=== PATIENT | male | born 1940 | race African-American/Black ===

== ENCOUNTER 2019-08-29 15:30 | Inpatient (IN) | payer MEDICARE, MEDICAID ==
[~2019-08-29] VITALS: Ht 172.7 cm; Wt 74.4 kg
[2019-08-29] VITALS (17 sets, daily range): BP systolic 65–99; BP diastolic 48–68
[2019-08-29] MEDS ORDERED: SODIUM CHLORIDE 0.9% 1000ML BAG (SEPSIS BOLUS) IV ONE (16:00)
[2019-08-29 16:18] LABS: BASOPHILS % 0.3 % (0.0-2.0); EOSINOPHILS % 0.4 % (0.0-5.0); HEMATOCRIT. 33.8 % (42.0-52.0); HEMOGLOBIN. 11.3 g/dL (14.0-18.0); LYMPHOCYTES % 10.4 % (20.0-50.0); MEAN CORPUSCULAR HEMOGLOBIN 32.7 pg (28.0-32.0); MEAN CORPUSCULAR VOLUME 98.1 fL (80.0-94.0); MEAN PLATELET VOLUME 7.8 fl (7.4-10.4); MONOCYTES % 8.2 % (2.0-8.0); NEUTROPHILS % 80.7 % (40.0-76.0); PLATELET 338 x1000/uL (130-400); RED BLOOD CELL COUNT 3.44 mill/uL (4.7-6.1); RED CELL DISTRIBUTION WIDTH 13.6 % (11.6-14.6)
[2019-08-29 16:22] LABS: PROTHROMBIN TIME 10.3 sec (9.6-11.0)
[2019-08-29 16:23] LABS: CHLORIDE 103 mEq/L (98-107)
[2019-08-29] MEDS ORDERED: SODIUM CHLORIDE 0.45% 1,000 ML IV SCH (20:02)
[2019-08-29] MEDS ORDERED: MORPHINE SULFATE 2 MG/ML CPJ (NOT FOR IM USE) IV PRN (20:15)
[2019-08-29] MEDS ORDERED: GUAIFENESIN 200MG/10ML SUGAR FREE UDC PO PRN (20:15)
[2019-08-29] MEDS ORDERED: ACETAMINOPHEN 325MG TABLET PO PRN (20:15)
[2019-08-29] MEDS ORDERED: DOCUSATE SODIUM 100MG CAPSULE PO PRN (20:15)
[2019-08-29] MEDS ORDERED: CLONIDINE 0.1MG TABLET PO PRN (20:15)
[2019-08-29] MEDS ORDERED: MAGNESIUM/ALUMINUM HYDROXIDE/SIMETHICONE 30ML UDC PO PRN (20:15)
[2019-08-29] MEDS ORDERED: HYDROCODONE/ACETAMINOPHEN 10/325MG TABLET PO PRN (20:15)
[2019-08-29] MEDS ORDERED: IPRATROPIUM/ALBUTEROL 0.5-3(2.5)MG/3ML NEB HHN PRN (20:15)
[2019-08-29] MEDS ORDERED: DOPAMINE 800MG PREMIX (DOUBLE) 250 ML IV PRN (20:57)
[2019-08-29] MEDS ORDERED: LEVOFLOXACIN 500MG PREMIX 100 ML IV SCH ×2 (21:00→22:00)
[2019-08-29] MEDS: DEXT 5%/0.9% NACL 1,000 ML IV SCH (21:07)
[2019-08-29] MEDS: PANTOPRAZOLE 80 MG in SODIUM CHLORIDE 0.9% 100 ML IV SCH (21:59)
[2019-08-29] MEDS: SODIUM CHLORIDE 0.9% INJ 3ML FLUSH IVF SCH (22:09)
[2019-08-29] MEDS: METRONIDAZOLE 500 MG PREMIX 100 ML IV SCH (22:09)
[2019-08-30] VITALS (81 sets, daily range): BP systolic 73–127; BP diastolic 43–83
[2019-08-30] MEDS: NOREPINEPHRINE 8 MG in DEXT 5% WATER 242 ML IV PRN (00:50)
[2019-08-30] MEDS: ONDANSETRON HCL 4MG/2ML INJ IV PRN (01:30)
[2019-08-30 02:57] LABS: BASOPHILS % 0.1 % (0.0-2.0); CHLORIDE 113 mEq/L (98-107); HEMATOCRIT. 28.1 % (42.0-52.0); HEMOGLOBIN. 9.4 g/dL (14.0-18.0); LYMPHOCYTES % 8.7 % (20.0-50.0); MEAN CORPUSCULAR HEMOGLOBIN 31.5 pg (28.0-32.0); MEAN CORPUSCULAR VOLUME 94.4 fL (80.0-94.0); MEAN PLATELET VOLUME 7.9 fl (7.4-10.4); MONOCYTES % 9.9 % (2.0-8.0); NEUTROPHILS % 81.3 % (40.0-76.0); PLATELET 192 x1000/uL (130-400); RED BLOOD CELL COUNT 2.98 mill/uL (4.7-6.1); RED CELL DISTRIBUTION WIDTH 14.3 % (11.6-14.6)
[2019-08-30 03:05] LABS: LDL CHOLESTEROL 53 mg/dL (5-100)
[2019-08-30 03:06] LABS: HDL CHOLESTEROL 31 mg/dL (40-59)
[2019-08-30 03:07] LABS: CREATINE KINASE 124 IU/L (39-308); CREATINE KINASE MB FRACTION 1.3 ng/mL (0.5-3.6); T4 FREE 1.01 ng/dL (0.76-1.46)
[2019-08-30] MEDS ORDERED: ASCO100T12 MT (05:00)
[2019-08-30] MEDS ORDERED: ASPI-1393 PO (05:00)
[2019-08-30] MEDS ORDERED: FERR236T3 MT (05:00)
[2019-08-30] MEDS ORDERED: LISI-648 PO (05:00)
[2019-08-30] MEDS: SODIUM CHLORIDE 0.9% INJ 3ML FLUSH IVF SCH ×3 (06:05→21:28)
[2019-08-30] MEDS: METRONIDAZOLE 500 MG PREMIX 100 ML IV SCH ×3 (06:05→21:28)
[2019-08-30] MEDS: DEXT 5%/0.9% NACL 1,000 ML IV SCH ×2 (06:53→17:59)
[2019-08-30] MEDS: PANTOPRAZOLE 80 MG in SODIUM CHLORIDE 0.9% 100 ML IV SCH ×2 (06:54→17:48)
[2019-08-30] MEDS ORDERED: PNEUMOCOCCAL 23-VAL P-SAC VAC 0.5 ML IM ONE (08:00)
[2019-08-30] MEDS ORDERED: DIATR MEGLU/DIATRIZOATE SOLN 30ML PO SCH (10:00)
[2019-08-30 11:01] LABS: HEMATOCRIT 27.3 % (42.0-52.0); HEMOGLOBIN 9.4 g/dL (14.0-18.0)
[2019-08-30 12:16] LABS: T4 FREE 1.03 ng/dL (0.76-1.46)
[2019-08-30 14:49] LABS: CREATINE KINASE 105 IU/L (39-308)
[2019-08-30 14:50] LABS: CREATINE KINASE MB FRACTION 1.2 ng/mL (0.5-3.6)
[2019-08-30 17:00] LABS: HEMOGLOBIN 7.8 g/dL (14.0-18.0)
[2019-08-30] MEDS: LORAZEPAM 2MG/ML CPJ IV PRN (20:29)
[2019-08-30] MEDS ORDERED: LEVOFLOXACIN 500MG PREMIX 100 ML IV SCH (23:00)
[2019-08-30 23:43] LABS: HEMOGLOBIN 7.6 g/dL (14.0-18.0)
[2019-08-30 23:59] LABS: CREATINE KINASE 81 IU/L (39-308); CREATINE KINASE MB FRACTION 1.2 ng/mL (0.5-3.6)
[2019-08-31] VITALS (107 sets, daily range): BP systolic 68–164; BP diastolic 42–94
[2019-08-31 00:58] LABS: HEMATOCRIT 23.2 % (42.0-52.0); HEMOGLOBIN 7.8 g/dL (14.0-18.0)
[2019-08-31] MEDS: LORAZEPAM 2MG/ML CPJ IV PRN (01:44)
[2019-08-31] MEDS: DEXT 5%/0.9% NACL 1,000 ML IV SCH ×3 (02:59→22:46)
[2019-08-31] MEDS: PANTOPRAZOLE 80 MG in SODIUM CHLORIDE 0.9% 100 ML IV SCH ×2 (04:03→16:17)
[2019-08-31] MEDS: NOREPINEPHRINE 8 MG in DEXT 5% WATER 242 ML IV PRN (05:36)
[2019-08-31] MEDS: METRONIDAZOLE 500 MG PREMIX 100 ML IV SCH ×3 (05:39→21:30)
[2019-08-31] MEDS: SODIUM CHLORIDE 0.9% INJ 3ML FLUSH IVF SCH ×3 (05:39→21:30)
[2019-08-31 06:16] LABS: BASOPHILS % 0.1 % (0.0-2.0); EOSINOPHILS % 0.2 % (0.0-5.0); LYMPHOCYTES % 10.3 % (20.0-50.0); MEAN CORPUSCULAR HEMOGLOBIN 31.9 pg (28.0-32.0); MEAN CORPUSCULAR VOLUME 95.8 fL (80.0-94.0); MEAN PLATELET VOLUME 7.9 fl (7.4-10.4); MONOCYTES % 6.4 % (2.0-8.0); PLATELET 147 x1000/uL (130-400); RED BLOOD CELL COUNT 1.75 mill/uL (4.7-6.1); RED CELL DISTRIBUTION WIDTH 14.9 % (11.6-14.6)
[2019-08-31 06:30] LABS: HEMATOCRIT. 16.8 % (42.0-52.0); HEMOGLOBIN. 5.6 g/dL (14.0-18.0)
[2019-08-31 07:00] LABS: CREATINE KINASE MB FRACTION 1.2 ng/mL (0.5-3.6)
[2019-08-31] MEDS ORDERED: LIDOCAINE HCL 1% 20ML VIAL (Pyxis) INJ ONE ×2 (08:00→14:17)
[2019-08-31 14:17] LABS: HEMATOCRIT 22.1 % (42.0-52.0); HEMOGLOBIN 7.7 g/dL (14.0-18.0)
[2019-08-31] MEDS ORDERED: IOHEXOL-300 100 ML BOTTLE ONE (14:17)
[2019-08-31] MEDS ORDERED: SODIUM BICARBONATE 4% (2.4MEQ) 5ML VIAL IV ONE (14:17)
[2019-08-31 18:09] LABS: HEMATOCRIT 21.8 % (42.0-52.0); HEMOGLOBIN 7.5 g/dL (14.0-18.0)
[2019-08-31] MEDS ORDERED: SORBITOL 70% SOLN 30ML PO NR (20:00)
[2019-08-31] MEDS: LEVOFLOXACIN 500MG PREMIX 100 ML IV SCH (20:29)
[2019-09-01] VITALS (82 sets, daily range): BP systolic 101–179; BP diastolic 53–131
[2019-09-01] MEDS ORDERED: SORBITOL 70% SOLN 30ML PO NR
[2019-09-01 00:59] LABS: HEMATOCRIT 20.3 % (42.0-52.0)
[2019-09-01] MEDS: PANTOPRAZOLE 80 MG in SODIUM CHLORIDE 0.9% 100 ML IV SCH ×2 (01:20→12:12)
[2019-09-01] MEDS: ONDANSETRON HCL 4MG/2ML INJ IV PRN (01:56)
[2019-09-01] MEDS: SODIUM CHLORIDE 0.9% INJ 3ML FLUSH IVF SCH ×3 (06:05→22:00)
[2019-09-01] MEDS: METRONIDAZOLE 500 MG PREMIX 100 ML IV SCH ×3 (06:06→23:38)
[2019-09-01 06:13] LABS: BASOPHILS % 0.2 % (0.0-2.0); EOSINOPHILS % 2.3 % (0.0-5.0); HEMATOCRIT. 23.9 % (42.0-52.0); HEMOGLOBIN. 8.3 g/dL (14.0-18.0); LYMPHOCYTES % 14.9 % (20.0-50.0); MEAN CORPUSCULAR HEMOGLOBIN 31.4 pg (28.0-32.0); MEAN CORPUSCULAR VOLUME 90.7 fL (80.0-94.0); MEAN PLATELET VOLUME 8.2 fl (7.4-10.4); MONOCYTES % 8.1 % (2.0-8.0); NEUTROPHILS % 74.5 % (40.0-76.0); PLATELET 114 x1000/uL (130-400); RED BLOOD CELL COUNT 2.64 mill/uL (4.7-6.1); RED CELL DISTRIBUTION WIDTH 15.3 % (11.6-14.6)
[2019-09-01 06:29] LABS: CHLORIDE 122 mEq/L (98-107)
[2019-09-01] MEDS: DEXT 5%/0.9% NACL 1,000 ML IV SCH (08:14)
[2019-09-01] MEDS: DEXT 5%/0.45% NACL 1000ML 1,000 ML IV SCH ×2 (12:12→21:54)
[2019-09-01 12:28] LABS: HEMATOCRIT 23.3 % (42.0-52.0); HEMOGLOBIN 8.1 g/dL (14.0-18.0)
[2019-09-01] MEDS ORDERED: BACTERIOSTATIC SODIUM CHLORIDE 0.9% 30ML VIAL IJ ONE (13:03)
[2019-09-01] MEDS ORDERED: MIDAZOLAM HCL 5 MG/5 ML VIAL ONE ×2 (15:20→15:21)
[2019-09-01] MEDS ORDERED: FENTANYL CITRATE/PF 50MCG/ML 2ML VIAL ONE (15:21)
[2019-09-01] MEDS ORDERED: MIDAZOLAM HCL 5 MG/5 ML VIAL IV PRN (15:42)
[2019-09-01] MEDS ORDERED: FENTANYL CITRATE/PF 50MCG/ML 2ML VIAL IV PRN (15:43)
[2019-09-01 20:05] LABS: HEMATOCRIT 21.8 % (42.0-52.0); HEMOGLOBIN 7.5 g/dL (14.0-18.0)
[2019-09-01] MEDS: LEVOFLOXACIN 500MG PREMIX 100 ML IV SCH (21:54)
[2019-09-02] VITALS (17 sets, daily range): BP systolic 104–145; BP diastolic 53–84
[2019-09-02 00:59] LABS: HEMATOCRIT 22.4 % (42.0-52.0); HEMOGLOBIN 7.7 g/dL (14.0-18.0)
[2019-09-02] MEDS: SODIUM CHLORIDE 0.9% INJ 3ML FLUSH IVF SCH ×3 (06:18→21:54)
[2019-09-02] MEDS: METRONIDAZOLE 500 MG PREMIX 100 ML IV SCH ×3 (06:18→21:54)
[2019-09-02 07:34] LABS: BASOPHILS % 0.3 % (0.0-2.0); EOSINOPHILS % 5.6 % (0.0-5.0); HEMATOCRIT. 21.8 % (42.0-52.0); HEMOGLOBIN. 7.6 g/dL (14.0-18.0); LYMPHOCYTES % 19.4 % (20.0-50.0); MEAN CORPUSCULAR HEMOGLOBIN 31.3 pg (28.0-32.0); MEAN CORPUSCULAR VOLUME 90.1 fL (80.0-94.0); MEAN PLATELET VOLUME 7.8 fl (7.4-10.4); MONOCYTES % 9.2 % (2.0-8.0); NEUTROPHILS % 65.5 % (40.0-76.0); PLATELET 142 x1000/uL (130-400); RED BLOOD CELL COUNT 2.42 mill/uL (4.7-6.1); RED CELL DISTRIBUTION WIDTH 14.6 % (11.6-14.6)
[2019-09-02 08:15] LABS: CHLORIDE 111 mEq/L (98-107)
[2019-09-02] MEDS ORDERED: POTASSIUM CHLORIDE 20MEQ TABLET SR PO NR (09:37)
[2019-09-02] MEDS: LORAZEPAM 2MG/ML CPJ IV PRN (22:06)
[2019-09-02] MEDS: LEVOFLOXACIN 500MG PREMIX 100 ML IV SCH (23:15)
[2019-09-03] VITALS (25 sets, daily range): BP systolic 108–158; BP diastolic 67–92
[2019-09-03] MEDS: SODIUM CHLORIDE 0.9% INJ 3ML FLUSH IVF SCH ×3 (05:15→21:39)
[2019-09-03] MEDS: METRONIDAZOLE 500 MG PREMIX 100 ML IV SCH ×3 (05:15→21:38)
[2019-09-03 13:04] LABS: BASOPHILS % 0.3 % (0.0-2.0); EOSINOPHILS % 4.9 % (0.0-5.0); HEMOGLOBIN. 11.9 g/dL (14.0-18.0); LYMPHOCYTES % 21.6 % (20.0-50.0); MEAN CORPUSCULAR HEMOGLOBIN 31.7 pg (28.0-32.0); MEAN CORPUSCULAR VOLUME 90.5 fL (80.0-94.0); MEAN PLATELET VOLUME 7.5 fl (7.4-10.4); MONOCYTES % 11.3 % (2.0-8.0); NEUTROPHILS % 61.9 % (40.0-76.0); PLATELET 179 x1000/uL (130-400); RED BLOOD CELL COUNT 3.76 mill/uL (4.7-6.1); RED CELL DISTRIBUTION WIDTH 14.5 % (11.6-14.6)
[2019-09-03 13:08] LABS: CHLORIDE 108 mEq/L (98-107)
[2019-09-03 13:13] LABS: PROTHROMBIN TIME 10.8 sec (9.6-11.0)
[2019-09-03] MEDS: LEVOFLOXACIN 500MG PREMIX 100 ML IV SCH (19:51)
[2019-09-04] VITALS (12 sets, daily range): BP systolic 117–152; BP diastolic 50–97
[2019-09-04] MEDS: METRONIDAZOLE 500 MG PREMIX 100 ML IV SCH ×3 (06:36→22:00)
[2019-09-04] MEDS: SODIUM CHLORIDE 0.9% INJ 3ML FLUSH IVF SCH ×3 (06:36→22:01)
[2019-09-04 08:07] LABS: BASOPHILS % 0.4 % (0.0-2.0); EOSINOPHILS % 4.6 % (0.0-5.0); HEMATOCRIT. 35.5 % (42.0-52.0); HEMOGLOBIN. 12.2 g/dL (14.0-18.0); LYMPHOCYTES % 19.1 % (20.0-50.0); MEAN CORPUSCULAR HEMOGLOBIN 31.1 pg (28.0-32.0); MEAN CORPUSCULAR VOLUME 90.5 fL (80.0-94.0); MEAN PLATELET VOLUME 7.5 fl (7.4-10.4); MONOCYTES % 12.9 % (2.0-8.0); PLATELET 215 x1000/uL (130-400); RED BLOOD CELL COUNT 3.93 mill/uL (4.7-6.1); RED CELL DISTRIBUTION WIDTH 14.4 % (11.6-14.6)
[2019-09-04 09:16] LABS: CHLORIDE 108 mEq/L (98-107)
[2019-09-04] MEDS ORDERED: MAGNESIUM CITRATE 300ML SOLUTION PO NR ×2 (11:30→15:30)
[2019-09-04] MEDS ORDERED: NEOMYCIN 500MG TABLET PO NR ×3 (18:00→23:00)
[2019-09-04] MEDS ORDERED: ERYTHROMYCIN 250MG CAPSULE DR PO NR ×3 (18:00→23:00)
[2019-09-04] MEDS ORDERED: [UNRECOGNIZED DRUG - OTHER] PO NR (20:00)
[2019-09-04] MEDS: LEVOFLOXACIN 500MG PREMIX 100 ML IV SCH (20:07)
[2019-09-05] VITALS (38 sets, daily range): BP systolic 116–171; BP diastolic 66–111
[2019-09-05] MEDS ORDERED: [UNRECOGNIZED DRUG - OTHER] PO NR (02:00)
[2019-09-05] MEDS: METRONIDAZOLE 500 MG PREMIX 100 ML IV SCH ×3 (05:30→21:02)
[2019-09-05] MEDS: SODIUM CHLORIDE 0.9% INJ 3ML FLUSH IVF SCH ×3 (05:31→22:00)
[2019-09-05] MEDS ORDERED: BLOOD SUGAR DIAGNOSTIC STRIP TEST NR (06:00)
[2019-09-05 06:06] LABS: HEMATOCRIT. 37.2 % (42.0-52.0); HEMOGLOBIN. 12.8 g/dL (14.0-18.0); MEAN CORPUSCULAR HEMOGLOBIN 31.3 pg (28.0-32.0); MEAN PLATELET VOLUME 7.7 fl (7.4-10.4); PLATELET 261 x1000/uL (130-400); RED BLOOD CELL COUNT 4.09 mill/uL (4.7-6.1); RED CELL DISTRIBUTION WIDTH 14.3 % (11.6-14.6)
[2019-09-05 06:07] LABS: CHLORIDE 107 mEq/L (98-107)
[2019-09-05] MEDS ORDERED: NORMAL SALINE 0.9% 10 ML SYR ONE (07:30)
[2019-09-05] MEDS ORDERED: INDOCYANINE GREEN 25 MG VIAL IV ONE (07:30)
[2019-09-05] MEDS ORDERED: SKIN ADHESIVE 0.7 GM EA TOP ONE (07:30)
[2019-09-05] MEDS ORDERED: BACITRACIN 50,000 UNITS/VIAL ONE (07:31)
[2019-09-05] MEDS ORDERED: BUPIVACAINE HCL 0.5% (5MG/ML) 50ML ONE (07:31)
[2019-09-05 08:40] LABS: PLATELET ESTIMATE NORMAL
[2019-09-05] MEDS ORDERED: MIDAZOLAM HCL 2 MG/2 ML VIAL ONE (09:42)
[2019-09-05] MEDS ORDERED: PROPOFOL 200MG/20ML VIAL IV ONE (09:42)
[2019-09-05] MEDS ORDERED: FENTANYL CITRATE/PF 50MCG/ML 2ML VIAL ONE (09:42)
[2019-09-05] MEDS ORDERED: ROCURONIUM BROMIDE 10MG/ML VIAL 5ML IV ONE (09:42)
[2019-09-05] MEDS ORDERED: ONDANSETRON HCL 4MG/2ML INJ IV PRN ×2 (10:00→13:30)
[2019-09-05] MEDS ORDERED: LEVOFLOXACIN 500MG PREMIX 100 ML IV ONE (10:03)
[2019-09-05] MEDS ORDERED: CEFAZOLIN SODIUM 1000MG/VIAL ONE (10:59)
[2019-09-05] MEDS ORDERED: BACITRACIN 15GM TUBE TOP ONE (12:23)
[2019-09-05] MEDS ORDERED: GLYCOPYRROLATE 0.2 MG/ML 2ML VIAL ONE (12:43)
[2019-09-05] MEDS ORDERED: KETOROLAC 30MG/ML VIAL ONE (12:54)
[2019-09-05] MEDS ORDERED: MEPERIDINE HCL/PF 25MG/ML CPJ IV PRN (13:30)
[2019-09-05] MEDS: HYDROMORPHONE HCL/PF 2MG/ML CPJ IV PRN ×4 (13:43→17:33)
[2019-09-05] MEDS: MORPHINE SULFATE 2 MG/ML CPJ (NOT FOR IM USE) IV PRN ×2 (15:52→20:53)
[2019-09-05] MEDS: DEXT 5%/0.45% NACL KCL 20MEQ/L 1,000 ML IV SCH (15:52)
[2019-09-05] MEDS: FAMOTIDINE 20MG/2ML VIAL IV SCH (20:48)
[2019-09-06] VITALS (43 sets, daily range): BP systolic 127–175; BP diastolic 38–110
[2019-09-06 00:39] LABS: HEMATOCRIT 34.6 % (42.0-52.0); MEAN CORPUSCULAR HEMOGLOBIN 31.7 pg (28.0-32.0); MEAN CORPUSCULAR VOLUME 91.2 fL (80.0-94.0); PLATELET 289 x1000/uL (130-400); RED BLOOD CELL COUNT 3.79 mill/uL (4.7-6.1); RED CELL DISTRIBUTION WIDTH 14.7 % (11.6-14.6)
[2019-09-06] MEDS: MORPHINE SULFATE 2 MG/ML CPJ (NOT FOR IM USE) IV PRN ×5 (01:55→21:01)
[2019-09-06] MEDS: DIPHENHYDRAMINE 50MG/ML VIAL IV PRN (03:04)
[2019-09-06] MEDS: DEXT 5%/0.45% NACL KCL 20MEQ/L 1,000 ML IV SCH ×3 (04:22→18:56)
[2019-09-06] MEDS: SODIUM CHLORIDE 0.9% INJ 3ML FLUSH IVF SCH ×3 (05:06→21:47)
[2019-09-06] MEDS: METRONIDAZOLE 500 MG PREMIX 100 ML IV SCH (05:06)
[2019-09-06 05:25] LABS: BASOPHILS % 0.1 % (0.0-2.0); EOSINOPHILS % 0.2 % (0.0-5.0); HEMATOCRIT. 37.5 % (42.0-52.0); HEMOGLOBIN. 12.7 g/dL (14.0-18.0); MEAN CORPUSCULAR HEMOGLOBIN 31.2 pg (28.0-32.0); MEAN CORPUSCULAR VOLUME 92.3 fL (80.0-94.0); MEAN PLATELET VOLUME 7.6 fl (7.4-10.4); MONOCYTES % 12.8 % (2.0-8.0); NEUTROPHILS % 76.9 % (40.0-76.0); PLATELET 309 x1000/uL (130-400); RED BLOOD CELL COUNT 4.06 mill/uL (4.7-6.1); RED CELL DISTRIBUTION WIDTH 14.7 % (11.6-14.6)
[2019-09-06 05:41] LABS: CHLORIDE 104 mEq/L (98-107)
[2019-09-06] MEDS ORDERED: LEVOFLOXACIN 500MG PREMIX 100 ML IV SCH (10:00)
[2019-09-06] MEDS: FAMOTIDINE 20MG/2ML VIAL IV SCH ×2 (10:41→20:32)
[2019-09-06 12:56] LABS: HEMATOCRIT 34.4 % (42.0-52.0); HEMOGLOBIN 11.8 g/dL (14.0-18.0); MEAN CORPUSCULAR HEMOGLOBIN 31.6 pg (28.0-32.0); MEAN CORPUSCULAR VOLUME 91.9 fL (80.0-94.0); PLATELET 304 x1000/uL (130-400); RED BLOOD CELL COUNT 3.75 mill/uL (4.7-6.1); RED CELL DISTRIBUTION WIDTH 14.7 % (11.6-14.6)
[2019-09-07] VITALS (12 sets, daily range): BP systolic 102–147; BP diastolic 45–96
[2019-09-07] MEDS: MORPHINE SULFATE 2 MG/ML CPJ (NOT FOR IM USE) IV PRN (02:33)
[2019-09-07] MEDS: HYDROMORPHONE HCL/PF 2MG/ML CPJ IV PRN ×2 (04:50→13:41)
[2019-09-07] MEDS: SODIUM CHLORIDE 0.9% INJ 3ML FLUSH IVF SCH ×3 (05:09→22:01)
[2019-09-07] MEDS: DEXT 5%/0.45% NACL KCL 20MEQ/L 1,000 ML IV SCH (05:23)
[2019-09-07 07:16] LABS: BASOPHILS % 0.2 % (0.0-2.0); EOSINOPHILS % 0.8 % (0.0-5.0); HEMATOCRIT. 33.2 % (42.0-52.0); HEMOGLOBIN. 11.3 g/dL (14.0-18.0); LYMPHOCYTES % 13.9 % (20.0-50.0); MEAN CORPUSCULAR HEMOGLOBIN 31.6 pg (28.0-32.0); MEAN CORPUSCULAR VOLUME 92.8 fL (80.0-94.0); MEAN PLATELET VOLUME 7.4 fl (7.4-10.4); MONOCYTES % 11.7 % (2.0-8.0); NEUTROPHILS % 73.4 % (40.0-76.0); PLATELET 303 x1000/uL (130-400); RED BLOOD CELL COUNT 3.58 mill/uL (4.7-6.1); RED CELL DISTRIBUTION WIDTH 14.7 % (11.6-14.6)
[2019-09-07 08:26] LABS: CHLORIDE 106 mEq/L (98-107)
[2019-09-07] MEDS: FAMOTIDINE 20MG/2ML VIAL IV SCH ×2 (08:52→21:00)
[2019-09-07] MEDS: DEXT 5%/0.45% NACL 1000ML 1,000 ML IV SCH ×2 (08:53→18:27)
[2019-09-07] MEDS: DIPHENHYDRAMINE 50MG/ML VIAL IV PRN (18:26)
[2019-09-08] VITALS (22 sets, daily range): BP systolic 52–178; BP diastolic 27–126
[2019-09-08] MEDS: HYDROMORPHONE HCL/PF 2MG/ML CPJ IV PRN ×4 (02:38→21:31)
[2019-09-08] MEDS: DEXT 5%/0.45% NACL 1000ML 1,000 ML IV SCH ×2 (04:45→13:22)
[2019-09-08] MEDS: SODIUM CHLORIDE 0.9% INJ 3ML FLUSH IVF SCH ×3 (06:19→22:53)
[2019-09-08 07:07] LABS: BASOPHILS % 0.2 % (0.0-2.0); EOSINOPHILS % 2.6 % (0.0-5.0); HEMATOCRIT. 31.4 % (42.0-52.0); HEMOGLOBIN. 10.6 g/dL (14.0-18.0); LYMPHOCYTES % 17.4 % (20.0-50.0); MEAN CORPUSCULAR HEMOGLOBIN 31.4 pg (28.0-32.0); MEAN CORPUSCULAR VOLUME 92.8 fL (80.0-94.0); MEAN PLATELET VOLUME 7.5 fl (7.4-10.4); MONOCYTES % 8.8 % (2.0-8.0); PLATELET 339 x1000/uL (130-400); RED BLOOD CELL COUNT 3.38 mill/uL (4.7-6.1); RED CELL DISTRIBUTION WIDTH 14.7 % (11.6-14.6)
[2019-09-08 07:10] LABS: CHLORIDE 108 mEq/L (98-107)
[2019-09-08] MEDS: FAMOTIDINE 20MG/2ML VIAL IV SCH ×2 (10:12→20:04)
[2019-09-08] MEDS: FINASTERIDE 5MG TABLET PO SCH (13:22)
[2019-09-08] MEDS: MORPHINE SULFATE 2 MG/ML CPJ (NOT FOR IM USE) IV PRN (18:15)
[2019-09-08] MEDS: DIPHENHYDRAMINE 50MG/ML VIAL IV PRN (20:04)
[2019-09-09] VITALS (12 sets, daily range): BP systolic 104–154; BP diastolic 56–102
[2019-09-09] MEDS: DEXT 5%/0.45% NACL 1000ML 1,000 ML IV SCH (00:03)
[2019-09-09] MEDS: DIPHENHYDRAMINE 50MG/ML VIAL IV PRN ×2 (01:29→21:17)
[2019-09-09] MEDS: SODIUM CHLORIDE 0.9% INJ 3ML FLUSH IVF SCH ×3 (06:18→21:11)
[2019-09-09 07:26] LABS: BASOPHILS % 0.7 % (0.0-2.0); EOSINOPHILS % 2.3 % (0.0-5.0); HEMATOCRIT. 30.8 % (42.0-52.0); HEMOGLOBIN. 10.5 g/dL (14.0-18.0); LYMPHOCYTES % 17.6 % (20.0-50.0); MEAN CORPUSCULAR HEMOGLOBIN 31.5 pg (28.0-32.0); MEAN CORPUSCULAR VOLUME 92.2 fL (80.0-94.0); MEAN PLATELET VOLUME 7.2 fl (7.4-10.4); NEUTROPHILS % 71.4 % (40.0-76.0); PLATELET 352 x1000/uL (130-400); RED BLOOD CELL COUNT 3.34 mill/uL (4.7-6.1); RED CELL DISTRIBUTION WIDTH 14.4 % (11.6-14.6)
[2019-09-09 07:49] LABS: CHLORIDE 107 mEq/L (98-107)
[2019-09-09] MEDS: FINASTERIDE 5MG TABLET PO SCH (10:03)
[2019-09-09] MEDS: FAMOTIDINE 20MG/2ML VIAL IV SCH ×2 (10:03→21:10)
[2019-09-09] MEDS: TAMSULOSIN HCL 0.4MG SR CAPSULE PO SCH (14:06)
[2019-09-10] VITALS (12 sets, daily range): BP systolic 99–133; BP diastolic 65–88
[2019-09-10] MEDS: MORPHINE SULFATE 2 MG/ML CPJ (NOT FOR IM USE) IV PRN (04:08)
[2019-09-10] MEDS: SODIUM CHLORIDE 0.9% INJ 3ML FLUSH IVF SCH ×3 (06:25→22:36)
[2019-09-10] MEDS: FAMOTIDINE 20MG/2ML VIAL IV SCH ×2 (08:37→20:27)
[2019-09-10] MEDS: FINASTERIDE 5MG TABLET PO SCH (08:37)
[2019-09-10] MEDS: TAMSULOSIN HCL 0.4MG SR CAPSULE PO SCH (08:37)
[2019-09-10] MEDS: DIPHENHYDRAMINE 50MG/ML VIAL IV PRN (08:38)
[2019-09-10 10:18] LABS: BASOPHILS % 0.6 % (0.0-2.0); HEMATOCRIT. 30.5 % (42.0-52.0); HEMOGLOBIN. 10.5 g/dL (14.0-18.0); LYMPHOCYTES % 16.1 % (20.0-50.0); MEAN CORPUSCULAR HEMOGLOBIN 31.5 pg (28.0-32.0); MEAN CORPUSCULAR VOLUME 91.9 fL (80.0-94.0); MEAN PLATELET VOLUME 7.2 fl (7.4-10.4); MONOCYTES % 8.1 % (2.0-8.0); NEUTROPHILS % 71.2 % (40.0-76.0); PLATELET 364 x1000/uL (130-400); RED BLOOD CELL COUNT 3.32 mill/uL (4.7-6.1); RED CELL DISTRIBUTION WIDTH 14.5 % (11.6-14.6)
[2019-09-10 10:28] LABS: CHLORIDE 105 mEq/L (98-107)
[2019-09-11] VITALS (9 sets, daily range): BP systolic 105–125; BP diastolic 65–99
[2019-09-11] MEDS: DIPHENHYDRAMINE 50MG/ML VIAL IV PRN ×2 (01:42→20:39)
[2019-09-11] MEDS: SODIUM CHLORIDE 0.9% INJ 3ML FLUSH IVF SCH ×3 (06:01→20:33)
[2019-09-11 06:41] LABS: BASOPHILS % 0.5 % (0.0-2.0); EOSINOPHILS % 4.4 % (0.0-5.0); HEMATOCRIT. 30.4 % (42.0-52.0); HEMOGLOBIN. 10.3 g/dL (14.0-18.0); LYMPHOCYTES % 18.7 % (20.0-50.0); MEAN CORPUSCULAR HEMOGLOBIN 31.3 pg (28.0-32.0); MEAN CORPUSCULAR VOLUME 92.6 fL (80.0-94.0); MEAN PLATELET VOLUME 7.3 fl (7.4-10.4); MONOCYTES % 9.1 % (2.0-8.0); NEUTROPHILS % 67.3 % (40.0-76.0); PLATELET 359 x1000/uL (130-400); RED BLOOD CELL COUNT 3.28 mill/uL (4.7-6.1); RED CELL DISTRIBUTION WIDTH 14.3 % (11.6-14.6)
[2019-09-11 06:59] LABS: CHLORIDE 107 mEq/L (98-107)
[2019-09-11] MEDS: TAMSULOSIN HCL 0.4MG SR CAPSULE PO SCH (08:12)
[2019-09-11] MEDS: FINASTERIDE 5MG TABLET PO SCH (08:12)
[2019-09-11] MEDS: FAMOTIDINE 20MG/2ML VIAL IV SCH ×2 (08:12→20:33)
[2019-09-11] MEDS: MORPHINE SULFATE 2 MG/ML CPJ (NOT FOR IM USE) IV PRN (11:48)
[2019-09-12] MEDS: MORPHINE SULFATE 2 MG/ML CPJ (NOT FOR IM USE) IV PRN (05:15)
[2019-09-12] MEDS: SODIUM CHLORIDE 0.9% INJ 3ML FLUSH IVF SCH (05:15)
[2019-09-12 06:42] LABS: CHLORIDE 106 mEq/L (98-107)
[2019-09-12 06:48] LABS: BASOPHILS % 0.6 % (0.0-2.0); EOSINOPHILS % 3.9 % (0.0-5.0); HEMATOCRIT. 30.4 % (42.0-52.0); HEMOGLOBIN. 10.2 g/dL (14.0-18.0); LYMPHOCYTES % 20.5 % (20.0-50.0); MEAN CORPUSCULAR HEMOGLOBIN 30.9 pg (28.0-32.0); MEAN PLATELET VOLUME 7.5 fl (7.4-10.4); MONOCYTES % 9.6 % (2.0-8.0); NEUTROPHILS % 65.4 % (40.0-76.0); PLATELET 367 x1000/uL (130-400); RED CELL DISTRIBUTION WIDTH 14.1 % (11.6-14.6)
[2019-09-12 08:00] VITALS: BP 129/79
[2019-09-12] MEDS: FAMOTIDINE 20MG/2ML VIAL IV SCH (10:52)
[2019-09-12] MEDS: FINASTERIDE 5MG TABLET PO SCH (10:58)
[2019-09-12] MEDS: TAMSULOSIN HCL 0.4MG SR CAPSULE PO SCH (10:58)
[2019-09-12 12:00] VITALS: BP 134/85
[2019-09-12 15:27] VITALS: BP 130/88
[2019-09-12 16:00] VITALS: BP 108/71
== END 2019-09-12 18:00 | disposition home or self-care (01) | DRG 853 ==
LOC: ER 15:30 → CVICU 16:41 → EDBEDREQ 18:19 → EDBEDREQTM 18:19 → EDBEDREQSVC 18:19 → ENRESERV 19:08 → 3WST 09-01 20:41 → MICUNO 09-05 14:57 → 5EST 09-06 16:30
PROVIDERS: ADMIT Internal Medicine; ATTEND Internal Medicine
PROC: 30233N1 Transfusion of Nonautologous Red Blood Cells into Peripheral Vein, Percutaneous Approach (ICD-10-PCS; 2019-08-29)
PROC: 02HV33Z Insertion of Infusion Device into Superior Vena Cava, Percutaneous Approach (ICD-10-PCS; 2019-08-31)
PROC: B548ZZA Ultrasonography of Superior Vena Cava, Guidance (ICD-10-PCS; 2019-08-31)
PROC: B4101ZZ Fluoroscopy of Abdominal Aorta using Low Osmolar Contrast (ICD-10-PCS; 2019-08-31)
PROC: B4141ZZ Fluoroscopy of Superior Mesenteric Artery using Low Osmolar Contrast (ICD-10-PCS; 2019-08-31)
PROC: B4151ZZ Fluoroscopy of Inferior Mesenteric Artery using Low Osmolar Contrast (ICD-10-PCS; 2019-08-31)
PROC: 0DBP8ZX Excision of Rectum, Via Natural or Artificial Opening Endoscopic, Diagnostic (ICD-10-PCS; 2019-09-01)
PROC: 0DTP4ZZ Resection of Rectum, Percutaneous Endoscopic Approach (ICD-10-PCS; principal; 2019-09-05)
PROC: 8E0W4CZ Robotic Assisted Procedure of Trunk Region, Percutaneous Endoscopic Approach (ICD-10-PCS; 2019-09-05)
DX: A41.50 Gram-negative sepsis, unspecified (principal); N17.0 Acute kidney failure with tubular necrosis; R57.1 Hypovolemic shock; K57.31 Diverticulosis of large intestine without perforation or abscess with bleeding; N39.0 Urinary tract infection, site not specified; E46 Unspecified protein-calorie malnutrition; C20 Malignant neoplasm of rectum; I25.10 Atherosclerotic heart disease of native coronary artery without angina pectoris; E11.65 Type 2 diabetes mellitus with hyperglycemia; R33.8 Other retention of urine; N40.1 Benign prostatic hyperplasia with lower urinary tract symptoms; B96.89 Other specified bacterial agents as the cause of diseases classified elsewhere; D64.9 Anemia, unspecified; I10 Essential (primary) hypertension; Z86.74 Personal history of sudden cardiac arrest; I25.2 Old myocardial infarction; Z95.5 Presence of coronary angioplasty implant and graft
CPT/HCPCS: 36415; 71045; 74176; 75625; 75726; 75774; 76937; 78278; 80048; 80061; 82378; 82550; 82553; 82962; 83036; 83605; 83880; 84153; 84439; 84443; 84484; 85014; 85018; 85027; 85379; 85384; 86301; 86850; 86900; 86920; 88305; 88307; 88309; 88329; 93005; 93306; 93970; 97116; 97162; 99285; A9560; C1725; C9113; J0690; J1170; J1200; J1644; J1885; J1956; J2060; J2250; J2270; J2405; J2704; J3010; J3490; J7030; J7040; J7042; J7050; J7060; J7070; J7517; P9016; Q9957; Q9963; Q9967; A4315; G0103

== ENCOUNTER 2019-09-13 10:59 | Emergency (ER) | payer MEDICARE, MEDICAID ==
[~2019-09-13] VITALS: Ht 172.7 cm; Wt 80.0 kg
[~2019-09-13 10:59] MED LIST: ASCO100T12 MT; ASPI-1393 PO; FERR236T3 MT; LISI-648 PO
[2019-09-13 11:47] LABS: BASOPHILS % 0.9 % (0.0-2.0); EOSINOPHILS % 1.8 % (0.0-5.0); HEMATOCRIT. 33.2 % (42.0-52.0); HEMOGLOBIN. 11.4 g/dL (14.0-18.0); LYMPHOCYTES % 11.7 % (20.0-50.0); MEAN CORPUSCULAR HEMOGLOBIN 31.5 pg (28.0-32.0); MEAN PLATELET VOLUME 7.4 fl (7.4-10.4); MONOCYTES % 8.2 % (2.0-8.0); NEUTROPHILS % 77.4 % (40.0-76.0); PLATELET 421 x1000/uL (130-400); RED CELL DISTRIBUTION WIDTH 14.5 % (11.6-14.6)
[2019-09-13 11:56] LABS: CHLORIDE 105 mEq/L (98-107)
[2019-09-13 15:22] VITALS: BP 119/76
[2019-09-14] MEDS ORDERED: CLOP75TA15 PO (08:25)
== END 2019-09-13 15:32 | disposition home or self-care (01) ==
LOC: ER 10:59
DX: K62.5 Hemorrhage of anus and rectum (principal); K94.03 Colostomy malfunction; I10 Essential (primary) hypertension; I25.10 Atherosclerotic heart disease of native coronary artery without angina pectoris; Z79.899 Other long term (current) drug therapy; Z79.82 Long term (current) use of aspirin; Z85.048 Personal history of other malignant neoplasm of rectum, rectosigmoid junction, and anus; Z98.890 Other specified postprocedural states
CPT/HCPCS: 36415; 99283

== ENCOUNTER 2019-09-14 08:15 | Emergency (ER) | payer MEDICARE, MEDICAID ==
[~2019-09-14] VITALS: Ht 167.6 cm; Wt 75.0 kg
[2019-09-14] MEDS ORDERED: CLOP75TA15 PO (08:25)
[2019-09-14 09:44] LABS: BASOPHILS % 0.8 % (0.0-2.0); EOSINOPHILS % 1.9 % (0.0-5.0); HEMATOCRIT. 35.7 % (42.0-52.0); HEMOGLOBIN. 12.1 g/dL (14.0-18.0); LYMPHOCYTES % 16.8 % (20.0-50.0); MEAN CORPUSCULAR HEMOGLOBIN 31.6 pg (28.0-32.0); MEAN CORPUSCULAR VOLUME 93.3 fL (80.0-94.0); MEAN PLATELET VOLUME 7.5 fl (7.4-10.4); MONOCYTES % 7.6 % (2.0-8.0); NEUTROPHILS % 72.9 % (40.0-76.0); PLATELET 501 x1000/uL (130-400); RED BLOOD CELL COUNT 3.82 mill/uL (4.7-6.1); RED CELL DISTRIBUTION WIDTH 14.6 % (11.6-14.6)
[2019-09-14 09:53] LABS: CHLORIDE 102 mEq/L (98-107)
[2019-09-14 10:08] LABS: PROTHROMBIN TIME 10.6 sec (9.6-11.0)
[2019-09-14 10:44] LABS: CLARITY URINE CLEAR (CLEAR); COLOR URINE YELLOW (YELLOW); KETONES URINE 1+ (NEGATIVE); LEUKOCYTE ESTERASE URINE NEGATIVE (NEGATIVE); NITRITE URINE NEGATIVE (NEGATIVE); OCCULT BLOOD URINE NEGATIVE (NEGATIVE); PH URINE 6.5 (4.5-8.0); PROTEIN URINE TRACE (NEGATIVE); UROBILINOGEN URINE 0.2 E.U./dL (0.2-1.0)
[2019-09-14 10:56] VITALS: BP 125/87
== END 2019-09-14 10:56 | disposition home or self-care (01) ==
LOC: ER 08:15 → EDBEDREQ 09:29 → ER 10:56 → CANBEDREQ 11:02
DX: K62.5 Hemorrhage of anus and rectum (principal); K91.872 Postprocedural seroma of a digestive system organ or structure following a digestive system procedure; I10 Essential (primary) hypertension; I25.10 Atherosclerotic heart disease of native coronary artery without angina pectoris; Z79.82 Long term (current) use of aspirin; Z85.048 Personal history of other malignant neoplasm of rectum, rectosigmoid junction, and anus; Z98.890 Other specified postprocedural states
CPT/HCPCS: 36415; 81003; 86850; 86900; 99283

== ENCOUNTER 2020-04-21 17:11 | Emergency (ER) | payer MEDICARE, MEDICAID ==
[~2020-04-21] VITALS: Ht 167.6 cm; Wt 74.0 kg
[~2020-04-21 17:11] MED LIST changes: -ASPI-1393 PO; +ASPI-1497 PO; +CLOP75TA15 PO
[2020-04-21 18:29] LABS: BASOPHILS % 1.1 % (0.0-2.0); EOSINOPHILS % 9.4 % (0.0-5.0); HEMATOCRIT. 36.5 % (42.0-52.0); HEMOGLOBIN. 12.5 g/dL (14.0-18.0); LYMPHOCYTES % 38.5 % (20.0-50.0); MEAN CORPUSCULAR HEMOGLOBIN 33.4 pg (28.0-32.0); MEAN CORPUSCULAR VOLUME 97.2 fL (80.0-94.0); MEAN PLATELET VOLUME 8.3 fl (7.4-10.4); MONOCYTES % 7.5 % (2.0-8.0); NEUTROPHILS % 43.5 % (40.0-76.0); PLATELET 207 x1000/uL (130-400); RED BLOOD CELL COUNT 3.76 mill/uL (4.7-6.1); RED CELL DISTRIBUTION WIDTH 13.9 % (11.6-14.6)
[2020-04-21 18:30] LABS: CHLORIDE 104 mEq/L (98-107)
[2020-04-21 21:41] VITALS: BP 110/69
== END 2020-04-21 23:03 | disposition home or self-care (01) ==
LOC: ER 17:11
DX: I10 Essential (primary) hypertension (principal); R55 Syncope and collapse; I25.10 Atherosclerotic heart disease of native coronary artery without angina pectoris; E78.00 Pure hypercholesterolemia, unspecified; I25.2 Old myocardial infarction; Z98.61 Coronary angioplasty status; Z85.9 Personal history of malignant neoplasm, unspecified
CPT/HCPCS: 36415; 71045; 80053; 83880; 84484; 85025; 93005; 99285

== ENCOUNTER 2022-03-14 16:55 | Emergency (ER) | payer MEDICARE, OTHER ==
[~2022-03-14] VITALS: Ht 167.6 cm; Wt 66.0 kg
[2022-03-14 18:45] LABS: BASOPHILS % 0.4 % (0.0-2.0); EOSINOPHILS % 5.2 % (0.0-5.0); HEMOGLOBIN. 9.9 g/dL (14.0-18.0); LYMPHOCYTES % 33.8 % (20.0-50.0); MEAN CORPUSCULAR HEMOGLOBIN 32.3 pg (28.0-32.0); MEAN PLATELET VOLUME 7.6 fl (7.4-10.4); MONOCYTES % 11.1 % (2.0-8.0); NEUTROPHILS % 49.5 % (40.0-76.0); PLATELET 177 x1000/uL (130-400); RED BLOOD CELL COUNT 3.08 mill/uL (4.7-6.1); RED CELL DISTRIBUTION WIDTH 14.5 % (11.6-14.6)
[2022-03-14 18:49] LABS: CHLORIDE 106 mEq/L (98-107)
[2022-03-14] MEDS ORDERED: ACETAMINOPHEN 325MG TABLET PO ONE (19:45)
[2022-03-14] MEDS ORDERED: IBUPROFEN 400MG TABLET PO ONE (19:45)
[2022-03-14 20:55] VITALS: BP 141/92
== END 2022-03-14 21:00 | disposition home or self-care (01) ==
LOC: ER 16:55
DX: M54.2 Cervicalgia (principal); V49.49XA Driver injured in collision with other motor vehicles in traffic accident, initial encounter; Y93.89 Activity, other specified; Y92.89 Other specified places as the place of occurrence of the external cause; Y99.8 Other external cause status; E78.00 Pure hypercholesterolemia, unspecified; I10 Essential (primary) hypertension; I25.10 Atherosclerotic heart disease of native coronary artery without angina pectoris; Z79.899 Other long term (current) drug therapy
CPT/HCPCS: 36415; 71045; 80053; 85025; 99285

== ENCOUNTER 2022-04-24 12:33 | Inpatient (IN) | payer MEDICARE, OTHER ==
[~2022-04-24] VITALS: Ht 167.6 cm; Wt 72.6 kg
[2022-04-24 13:27] LABS: BASOPHILS % 0.9 % (0.0-2.0); EOSINOPHILS % 5.6 % (0.0-5.0); HEMATOCRIT. 35.4 % (42.0-52.0); LYMPHOCYTES % 34.8 % (20.0-50.0); MEAN CORPUSCULAR HEMOGLOBIN 32.7 pg (28.0-32.0); MEAN CORPUSCULAR VOLUME 96.9 fL (80.0-94.0); MEAN PLATELET VOLUME 7.8 fl (7.4-10.4); MONOCYTES % 13.7 % (2.0-8.0); PLATELET 224 x1000/uL (130-400); RED BLOOD CELL COUNT 3.65 mill/uL (4.7-6.1)
[2022-04-24 13:33] LABS: CHLORIDE 103 mEq/L (98-107)
[2022-04-24 13:39] LABS: ETHANOL BLOOD < 10 mg/dL
[2022-04-24] MEDS ORDERED: SODIUM CHLORIDE 0.9% 1,000 ML IV ONE (14:45)
[2022-04-24 15:05] LABS: CHLORIDE 99 mEq/L (98-107)
[2022-04-24 15:59] LABS: CLARITY URINE TURBID (CLEAR); COLOR URINE YELLOW (YELLOW); KETONES URINE NEGATIVE (NEGATIVE); LEUKOCYTE ESTERASE URINE 1+ (NEGATIVE); NITRITE URINE POSITIVE (NEGATIVE); OCCULT BLOOD URINE NEGATIVE (NEGATIVE); PROTEIN URINE NEGATIVE (NEGATIVE); SPECIFIC GRAVITY URINE 1.003 (1.005-1.030); UROBILINOGEN URINE 0.2 E.U./dL (0.2-1.0)
[2022-04-24] MEDS ORDERED: CEFTRIAXONE 1 G PREMIX 50 ML IV NR (19:00)
[2022-04-24 20:25] VITALS: BP 156/104
[2022-04-24] MEDS ORDERED: CLONIDINE 0.1MG TABLET PO PRN (22:00)
[2022-04-24] MEDS ORDERED: ACETAMINOPHEN 325MG TABLET PO PRN (22:00)
[2022-04-24] MEDS ORDERED: LORATADINE 10MG TABLET PO PRN (22:00)
[2022-04-24] MEDS ORDERED: CEFTRIAXONE 1 G PREMIX 50 ML IV SCH (22:00)
[2022-04-25] VITALS: BP 133/80
[2022-04-25] MEDS ORDERED: TAMS-11 PO (00:08)
[2022-04-25] MEDS ORDERED: FLUT9.9S16 BOTHNSTRLS (00:08)
[2022-04-25] MEDS ORDERED: ATOR-2 MT (00:08)
[2022-04-25] MEDS ORDERED: FINA5TAB11 PO (00:08)
[2022-04-25] MEDS ORDERED: LORA10TA7 MT (00:08)
[2022-04-25] MEDS ORDERED: CARV12.545 MT (00:08)
[2022-04-25 04:00] VITALS: BP 139/85
[2022-04-25 06:36] LABS: BASOPHILS % 0.7 % (0.0-2.0); HEMATOCRIT. 35.2 % (42.0-52.0); LYMPHOCYTES % 37.6 % (20.0-50.0); MEAN CORPUSCULAR HEMOGLOBIN 33.2 pg (28.0-32.0); MEAN CORPUSCULAR VOLUME 97.4 fL (80.0-94.0); MEAN PLATELET VOLUME 8.2 fl (7.4-10.4); MONOCYTES % 14.7 % (2.0-8.0); PLATELET 197 x1000/uL (130-400); RED BLOOD CELL COUNT 3.62 mill/uL (4.7-6.1); RED CELL DISTRIBUTION WIDTH 13.8 % (11.6-14.6)
[2022-04-25 06:52] LABS: CHLORIDE 107 mEq/L (98-107)
[2022-04-25 07:22] LABS: HDL CHOLESTEROL 67 mg/dL (40-59); LDL CHOLESTEROL 42 mg/dL (5-100)
[2022-04-25 08:00] VITALS: BP 123/77
[2022-04-25] MEDS: FLUTICASONE PROPIONATE 50MCG/SPRAY BOTTLE BOTHNSTRLS SCH (08:53)
[2022-04-25] MEDS: TAMSULOSIN HCL 0.4MG SR CAPSULE PO SCH (08:54)
[2022-04-25] MEDS: ENOXAPARIN 40MG/0.4ML SYR SUBCUT SCH (08:54)
[2022-04-25] MEDS: CARVEDILOL 12.5MG TABLET PO SCH ×2 (08:55→20:20)
[2022-04-25] MEDS: FINASTERIDE 5MG TABLET PO SCH (08:55)
[2022-04-25] MEDS: LISINOPRIL 20MG TABLET PO SCH (08:56)
[2022-04-25] MEDS: CLOPIDOGREL 75MG TABLET PO SCH (08:56)
[2022-04-25 12:00] VITALS: BP 121/70
[2022-04-25 16:00] VITALS: BP 157/80
[2022-04-25] MEDS ORDERED: CEFTRIAXONE 1,000 MG in DEXTROSE 5% WATER 50 ML IV SCH (18:00)
[2022-04-25 19:54] VITALS: BP 138/79
[2022-04-25] MEDS ORDERED: ATORVASTATIN CALCIUM 40MG TABLET PO SCH (21:00)
[2022-04-26] VITALS: BP 142/75
[2022-04-26 03:55] VITALS: BP 129/75
[2022-04-26] MEDS ORDERED: LEVO500T90 MT (08:20)
[2022-04-26 10:02] VITALS: BP 115/74
[2022-04-26] MEDS: CLOPIDOGREL 75MG TABLET PO SCH (10:13)
[2022-04-26] MEDS: CARVEDILOL 12.5MG TABLET PO SCH (10:13)
[2022-04-26] MEDS: TAMSULOSIN HCL 0.4MG SR CAPSULE PO SCH (10:13)
[2022-04-26] MEDS: LISINOPRIL 20MG TABLET PO SCH (10:13)
[2022-04-26] MEDS: FLUTICASONE PROPIONATE 50MCG/SPRAY BOTTLE BOTHNSTRLS SCH (10:13)
[2022-04-26] MEDS: ENOXAPARIN 40MG/0.4ML SYR SUBCUT SCH (10:14)
[2022-04-26] MEDS: FINASTERIDE 5MG TABLET PO SCH (10:14)
[2022-04-26 10:49] VITALS: BP 115/74
== END 2022-04-26 13:14 | disposition home or self-care (01) | DRG 690 ==
LOC: ER 12:33 → 6WST 18:58 → EDBEDREQTM 19:01 → EDBEDREQ 19:01 → ENRESERV 19:53
PROVIDERS: ADMIT Internal Medicine; ATTEND Internal Medicine
DX: N39.0 Urinary tract infection, site not specified (principal); G90.8 Other disorders of autonomic nervous system; D64.9 Anemia, unspecified; I10 Essential (primary) hypertension; I25.10 Atherosclerotic heart disease of native coronary artery without angina pectoris; J45.909 Unspecified asthma, uncomplicated; M19.90 Unspecified osteoarthritis, unspecified site; N40.0 Benign prostatic hyperplasia without lower urinary tract symptoms; H53.8 Other visual disturbances; I25.2 Old myocardial infarction; Z93.3 Colostomy status; Z95.5 Presence of coronary angioplasty implant and graft; Z86.73 Personal history of transient ischemic attack (TIA), and cerebral infarction without residual deficits
CPT/HCPCS: 36415; 70551; 71045; 80048; 80053; 80061; 80320; 81003; 83880; 84443; 84484; 85025; 93005; 99285; J0696; J1650; J7030; J7060; G0480

== ENCOUNTER 2022-06-08 11:21 | Emergency (ER) | payer MEDICARE, OTHER ==
[~2022-06-08] VITALS: Ht 167.6 cm; Wt 66.0 kg
[~2022-06-08 11:21] MED LIST changes: +ATOR-2 MT; +CARV12.545 MT; +FINA5TAB11 PO; +FLUT9.9S16 BOTHNSTRLS; +LEVO500T90 MT; +LORA10TA7 MT; +TAMS-11 PO
[2022-06-08] MEDS ORDERED: BENZ100C86 MT (12:54)
[2022-06-08 13:35] VITALS: BP 126/75
== END 2022-06-08 13:36 | disposition home or self-care (01) ==
LOC: ER 12:51
DX: R09.81 Nasal congestion (principal); J02.9 Acute pharyngitis, unspecified; R51.9 Headache, unspecified; I10 Essential (primary) hypertension; I25.2 Old myocardial infarction; Z79.899 Other long term (current) drug therapy; Z20.822 Contact with and (suspected) exposure to COVID-19
CPT/HCPCS: 87426; 99283; C9803